=== PATIENT | female | born 1965 | race Two or more races ===

== ENCOUNTER 2024-10-24 13:33 | Emergency (ER) | payer MEDICAID, SELFPAY ==
[2024-10-24 13:44] VITALS: BP 161/89; PULSE 68; RESP 20; TEMP 36.6; O2SAT 99
--- NOTE | 2024-10-24 13:49 | XR_ITS ---
Examination: CT abdomen and pelvis without contrast. Coronal 3-D reconstructions. Sagittal 2-D reconstructions. Date and time of exam:October 24, 2024 1450 hours INDICATIONS: Generalized abdominal pain with dysuria beginning 2 days ago CTDI: vol (mGy): 7.4 DLP: (mGycm): 420 Technique: Axial images of the abdomen have been obtained, 3 mm slice thickness Intravenous contrast material has not been administered. Low dose protocols were performed. One or more of the following dose reduction techniques were used; automated exposure control, adjustment of the mA and/or KV according to patient size, use of iterative reconstruction technique. Findings: No focal liver or splenic lesions Absent gallbladder No pancreatic or adrenal mass Mild bilateral renal parenchymal scar formation No hydronephrosis or ureteral calculi Aorta normal size Normal appendix No bowel obstruction No diverticulitis Anteverted atrophic uterus Contracted urinary bladder Moderate osteopenia IMPRESSION: Mild bilateral renal parenchymal scar formation No hydronephrosis or ureteral calculi No bladder mass or bladder calculi
[2024-10-24 13:50] VITALS: BMI 26.4
[2024-10-24] MEDS: KETOROLAC INJ 30 MG/ML VIAL IM ×2 (13:55→15:36)
[2024-10-24 14:17] LABS: Collection Type, Urine Clean Catch
[2024-10-24 14:21] LABS: Basophils # (Auto) 0.1 Thou/mm3 (0.0-0.2); Basophils % (Auto) 1 % (0-2.5); Eosinophils # (Auto) 0.0 Thou/mm3 (0.0-0.5); Eosinophils % (Auto) 1 % (0-10); Hematocrit 38.0 % (36.0-46.0); Hemoglobin 13.4 g/dL (12.0-16.0); Immature Granulocytes Auto 0.02 Thou/mm3 (0.00-0.00); Lymphocytes # (Auto) 1.8 Thou/mm3 (1.0-4.8); Lymphocytes % (Auto) 22 % (10-50); Mean Corpuscular HGB Conc 35.3 g/dl (31.0-37.0); Mean Corpuscular Hemoglobin 29.6 pg (25.0-35.0); Mean Corpuscular Volume 84 fL (80-100); Monocytes # (Auto) 0.4 Thou/mm3 (0.0-0.8); Monocytes % (Auto) 5 % (0-12); Neutrophils # (Auto) 5.8 Thou/mm3 (1.8-7.7); Neutrophils % (Auto) 72 % (37-80); Nucleated Red Blood Cell # 0.00 Thou/mm3 (0.00-0.00); Nucleated Red Blood Cell % 0 /100 WBC (0); Platelet Count 243 Thou/mm3 (140-440); RDW Standard Deviation 36.8 fL (36.4-46.3); Red Blood Count 4.52 Miln/mm3 (4.00-5.20); White Blood Count 8.1 Thou/mm3 (3.6-11.0)
[2024-10-24 14:40] LABS: Alanine Aminotransferase 14 U/L (10-49); Albumin, Serum 4.6 gm/dL (3.4-4.8); Albumin/Globulin Ratio 1.5 (1.2-2.2); Alkaline Phosphatase 97 U/L (46-116); Anion Gap 9 (7-16); Aspartate Amino Transferase 21 U/L (0-34); BUN/Creatinine Ratio 23 Ratio (12-20); Bilirubin,Total 1.2 mg/dL (0.3-1.2); Blood Urea Nitrogen 18 mg/dL (9-23); Calcium 9.2 mg/dL (8.3-10.6); Calcium (Corrected) 9.2 mg/dL (8.5-10.1); Carbon Dioxide 28.0 mMol/L (20.0-31.0); Chloride 105 mMol/L (98-107); Creatinine (Component) 0.8 mg/dL (0.6-1.3); Estimated Creatinine Clearance 70.8 mL/min (>60); Globulin 3.0 gm/dL (2.3-3.5); Glucose 108 mg/dL (74-106); Lipase 21 U/L (12-53); Osmolality,Calculated 286 (275-295); Potassium 4.0 mMol/L (3.4-5.1); Sodium 142 mMol/L (136-145); Total Protein 7.6 gm/dL (5.7-8.2); eGFR > 60 See Note
[2024-10-24 14:44] LABS: Bacteria,Urine 2+; Bilirubin,Urine Negative (Negative); Blood,Urine 2+ (Negative); Color,Urine Yellow (Lt Yel-Yel); Glucose, Urine Negative (Negative); Ketones,Urine Negative (Negative); Leukocyte Esterase,Urine Positive (Negative); Nitrite,Urine Negative (Negative); PH,Urine 5.5 (5.0-7.0); Protein,Urine Trace (Neg - Trace); RBC,Urine 35 /hpf (0-3); Specific Gravity,Urine 1.036 (1.001-1.035); Squamous Epithelial Cell,Urine 3 /hpf (0-5); Urobilinogen,Urine Negative mg/dL (0.0-1.0); WBC,Urine 200 /hpf (0-5)
[2024-10-24 14:59] LABS: Clarity,Urine Hazy (Clear/Hazy); Culture Indicated,Urine Yes
--- NOTE | 2024-10-24 15:16 | PD.EDFMALE ---
ED Female Urogenital RME/HPI General Chief complaint: General Adult/Misc Complain Stated complaint: DIFF URINATING, BLOOD IN URINE STARTED YESTERDAY Time Seen by Provider: 10/24/24 13:44 Arrival date/time: 10/24/24 13:33 59-year-old female presents to the emergency department today for complaints of dysuria and blood in the urine with back pain Limitations: no limitations Related Data Previous Rx's ?Medication ?Instructions ?Recorded acetaminophen 325 mg tablet 650 mg (2 x 325 mg) PO QID PRN 02/19/22 (Tylenol) pain #60 tabs ciprofloxacin HCl 500 mg tablet 500 mg PO BID #14 tabs 02/19/22 (Cipro) metronidazole 500 mg tablet 500 mg PO BID #14 tabs 02/19/22 ciprofloxacin HCl 500 mg tablet 500 mg PO BID 7 days #14 tabs 10/24/24 ibuprofen 600 mg tablet 600 mg PO Q6H #30 tabs 10/24/24 phenazopyridine 100 mg tablet 100 mg PO TID 2 days #6 tabs 10/24/24 (Pyridium) Allergies Allergy/AdvReac Type Severity Reaction Status Date / Time No Known Allergies Allergy Verified 10/24/24 13:38 Review of Systems Review of Systems Systems Reviewed: All systems reviewed, normal except as documented Constitutional Constitutional: Reports system reviewed and no additional complaints, except as documented, Denies fever(s) and Denies headache(s) Eyes Eyes: Reports system reviewed and no additional complaints, except as documented and Denies blurry vision ENT Ears, Nose, Mouth, and Throat: Reports system reviewed and no additional complaints, except as documented, Denies headache(s), Denies nasal congestion and Denies nasal discharge Cardiovascular Cardiovascular: Reports system reviewed and no additional complaints, except as documented, Denies chest pain and Denies dyspnea Respiratory Respiratory: Reports system reviewed and no additional complaints, except as documented, Denies chest congestion, Denies cough and Denies dyspnea Gastrointestinal Gastrointestinal: Reports system reviewed and no additional complaints, except as documented and Denies abdominal pain Genitourinary Genitourinary: Reports system reviewed and no additional complaints, except as documented, Denies abnormal vaginal bleeding, Reports dysuria, Reports flank pain and Reports hematuria Integumentary/Breasts Skin/Breast: Reports system reviewed and no additional complaints, except as documented and Denies rash Neurologic Neurologic: Reports system reviewed and no additional complaints, except as documented, Reports as per HPI and Denies headache(s) Past Medical History Past Medical History CARDIAC: Negative Cardiac Disorders or Congestive Heart Failure RESPIRATORY: Negative Chronic Obstructive Pulmonary Disease (COPD) or Asthma GENITOURINARY: Negative Renal Disease ENDOCRINE: Negative Diabetes Mellitus Type 1 or Diabetes Mellitus Type 2 HEMATOLOGIC: Negative Sickle Cell Disease Social History SMOKING STATUS: Never smoker SUBSTANCE USE: does not use ED Exam General Limitations: Present no limitations General appearance: Present alert and in no apparent distress Head Head exam: Present atraumatic, normocephalic and normal inspection Eye Eye exam: Present normal appearance, PERRL and EOMI; Absent conjunctival injection ENT ENT exam: Present normal exam, normal oropharynx and mucous membranes moist Neck Neck exam: Present normal inspection, full ROM and trachea midline Chest Chest inspection: Present normal inspection and symmetric chest wall rise Respiratory Respiratory exam: Present normal lung sounds bilaterally; Absent respiratory distress Cardiovascular Cardiovascular exam: Present regular rate, normal rhythm and normal heart sounds Abdominal Exam Abdominal exam: Present soft and normal bowel sounds; Absent distention, tenderness, guarding, rebound or rigidity Extremities Exam Extremities exam: Present normal inspection and full ROM Back Exam Back exam: Present normal inspection and full ROM Neurological Exam Neurological exam: Present alert, oriented X3, CN II-XII intact, normal gait and reflexes normal; Absent motor sensory deficit Psychiatric Psychiatric exam: Present normal affect and normal mood Skin Skin exam: Present warm, dry, intact and normal color; Absent rash Course Quality Measures none Orders Category Date Time Status CT abdomen pelvis wo con Stat Exams 10/24/24 13:49 Completed CBC Stat Lab 10/24/24 13:54 Completed Comprehensive Metabolic Panel Stat Lab 10/24/24 13:54 Completed Lipase Stat Lab 10/24/24 13:54 Completed UA, C/S IF [Urinalysis, C/S if Indicated] Stat Lab 10/24/24 13:00 Completed Urine Culture Stat Lab 10/24/24 13:00 Received HYDROcodone*/APAP 5/325 [Alma 5/325] Med 10/24/24 15:23 Discontinued 1 tab PO X1 ONE Ketorolac Inj [Toradol Inj] Med 10/24/24 13:49 Discontinued 30 mg IM X1 ONE Ketorolac Inj [Toradol Inj] Med 10/24/24 15:23 Discontinued 30 mg IM X1 ONE Lidocaine 1% 20 ml [Xylocaine 1% 20 ML] Med 10/24/24 15:16 Discontinued 2.1 ml INFL X1 ONE cefTRIAXone [Rocephin] Med 10/24/24 15:16 Discontinued 1,000 mg IM X1 ONE Vital Signs Vital signs: Vital Signs Temperature 97.9 F 10/24/24 13:44 Pulse Rate 68 10/24/24 13:44 Respiratory Rate 20 10/24/24 13:44 Blood Pressure 161/89 H 10/24/24 13:44 Pulse Oximetry (%) 99 10/24/24 13:44 Oxygen Delivery Method Room Air 10/24/24 13:44 O2 saturation 99% on room air within normal limits Urogenital - Female MDM Narrative MDM Narrative:: 59-year-old female presents to the emergency department today for complaints of dysuria and blood in the urine with back pain On exam patient well-appearing patient does not appear toxic no acute distress patient does have pain Patient medicated here for pain I reviewed the patient lab work and CT scan no acute emergent findings noted patient noted to have UTI Patient given Rocephin as well as Toradol x 2 and Alma Patient discharged home in no distress to follow-up with primary care doctor in the next 24 to 48 hours and for any worsening symptoms to return to the ER immediately Patient data External records reviewed:: [facility] previous records Clinical information provided by:: patient Social determinants that could affect healthcare access:: none Patient has the following chronic illnesses:: See history How is presenting disease/condition affected by chronic disease/condition?: uneffected by Evaluation data The following diagnostics were reviewed and interpreted by me:: lab results and radiology exam(s) Lab and/or radiology exams considered but not ordered:: Labs and radiology obtain Interpretation Summary: Reviewed by me Medications / Prescriptions Medications or Prescriptions considered but not ordered:: Given Medication administrations:: Medication Administration History Discontinued Medications Hydrocodone Bitart/Acetaminophen (Hydrocodone/Apap 5/325 Tablet) 1 tab PO X1 ONE Stop: 10/24/24 15:24 Last Admin: 10/24/24 15:35 Dose: 1 tab Documented By: WENDI Ceftriaxone Sodium (Ceftriaxone Sod Inj 1,000 Mg Vial) 1,000 mg IM X1 ONE Stop: 10/24/24 15:17 Last Admin: 10/24/24 15:37 Dose: 1,000 mg Documented By: WENDI Ketorolac Tromethamine (Ketorolac Inj 30 Mg/Ml Vial) 30 mg IM X1 ONE Stop: 10/24/24 13:50 Last Admin: 10/24/24 13:55 Dose: 30 mg Documented By: RACHEL Ketorolac Tromethamine (Ketorolac Inj 30 Mg/Ml Vial) 30 mg IM X1 ONE Stop: 10/24/24 15:24 Last Admin: 10/24/24 15:36 Dose: 30 mg Documented By: WENDI Lidocaine HCl (Lidocaine Hcl 1% 20 Ml Vial) 2.1 ml INFL X1 ONE Stop: 10/24/24 15:17 Last Admin: 10/24/24 15:35 Dose: 2.1 ml Documented By: WENDI Given Consultations Consultation(s) initiated? (list below): No Diagnosis Urogenital Female Differential Diagnosis: urinary tract infection and cystitis Most likely diagnosis given after review of the tests above:: Dysuria Admission Indicated Admission indicated?: not indicated Admission Request Was there a request for admission?: No Disposition Plan Disposition Plan: Discharge Discharge Attestation Discharge Attestation: The patient and all family members were given an opportunity to ask questions and understood the discharge instructions. Discharge instructions specifically effects, indications for sooner follow up or return to the emergency department, and the expected course of current diagnosis. Patient condition: Stable Discharge Plan Plan Patient Disposition: HOME (Self Care) Discharge Disposition comment: Stable Prescriptions/Referrals Prescriptions/Med Rec: New ciprofloxacin HCl 500 mg tablet 500 mg PO BID 7 Days Qty: 14 0RF phenazopyridine [Pyridium] 100 mg tablet 100 mg PO TID 2 Days Qty: 6 0RF ibuprofen 600 mg tablet 600 mg PO Q6H Qty: 30 0RF No Action ciprofloxacin HCl [Cipro] 500 mg tablet 500 mg PO BID Qty: 14 0RF metronidazole 500 mg tablet 500 mg PO BID Qty: 14 0RF acetaminophen [Tylenol] 325 mg tablet 650 mg PO QID PRN (Reason: pain) Qty: 60 0RF Problem List Clinical Impression: UTI (urinary tract infection) Patient/Caregiver Discharge Instructions Education Materials: ED CYSTITIS Female Adult Additional Instructions: Please follow up with your primary care doctor in the next 24-48hrs for any worsening symptoms return here immediately Print Language: Icelandic Stand Alone Forms: [employer] Award Info., Patient Portal Info Letter PA/PARVEZ Supervising Physician JUAN/PARVEZ Supervising Physician: Dr. soto
[2024-10-24] MEDS: LIDOCAINE HCL 1% 20 ML VIAL 2.1 ML INFL (15:35)
[2024-10-24] MEDS: HYDROcodone/APAP 5/325 TABLET 1 TAB PO (15:35)
[2024-10-24] MEDS: cefTRIAXone SOD INJ 1,000 MG VIAL 1000 MG IM (15:37)
== END 2024-10-24 15:44 | disposition home or self-care (01) ==
LOC: SERX 16:03
PROVIDERS: Nurse Practitioner Primary Care; Emergency Provider Emergency Medicine
DX: N39.0 Urinary tract infection, site not specified (principal); N28.89 Other specified disorders of kidney and ureter
CPT/HCPCS: 36415; 74176; 80053; 81001; 83690; 85025; 87077; 87086; 87186; 96372; 99284; J0696; J1885; J3490; A9270